=== PATIENT | female | born 2005 | race Two or more races ===

== ENCOUNTER 2024-04-14 17:08 | Emergency (ER) | payer MEDICAID, OTHER ==
[~2024-04-14] VITALS: Ht 160 cm; Wt 58.8 kg
[2024-04-14 18:51] VITALS: BP 108/69; PULSE 98; RESP 16; TEMP 98.3; O2SAT 100
[2024-04-14] MEDS ORDERED: CLOT1CRE51 VA (18:56)
--- NOTE | 2024-04-14 18:56 | ED.PDOC ---
History of Present Illness(SKN HPI Comments This is a 19-year-old female presents to the ED chief complaint rash. Patient states circular rash itchy and red to left forearm times 1-2 weeks. States she is currently . Has not tried any [id number] creams. Denies any other rashes, fever, chills, nausea, vomiting, vaginal bleeding, vaginal spotting, or urinary complaints or abdominal cramping/pain. Chief Complaint: Rash Time Seen by MD: 18:00 Primary Care Provider: NONE History of Present Illness: Nurses Notes, Medications, Allergies Allergies: Coded Allergies: NO KNOWN ALLERGIES (Unverified , 04/14/24) Mode of Arrival: Ambulatory Past Medical History PAST MEDICAL HISTORY: Denies Surgical History: Denies all surgeries LOGISTICIAN History: No Pertinent LOGISTICIAN History Family History Family History: Reviewed,noncontributory to illness Social History Smoker: Non-Smoker Alcohol: Denies ETOH Use Drugs: Denies Drug Use Constitutional: denies: chills, diaphoresis, fatigue, fever, malaise, sweats, weakness, others EENTM: denies: blurred vision, double vision, ear bleeding, ear discharge, ear drainage, ear pain, ear ringing, eye pain, eye redness, hearing loss, mouth pain, mouth swelling, nasal discharge, nose bleeding, nose congestion, nose pain , photophobia, tearing, throat pain, throat swelling, voice changes, others Respiratory: denies: cough, hemoptysis, orthopnea, SOB at rest, shortness of breath, SOB with excertion, stridor, wheezing, others Cardiovascular: denies: chest pain, dizzy spells, diaphoresis, Dyspnea on exertion, edema, irregular heart beat, left arm pain, lightheadedness, palpitations, PND, syncope, others Gastrointestinal: denies: abdomen distended, abdominal pain, blood streaked bowels, constipated, diarrhea, dysphagia, difficulty swallowing, hematemesis, melena, nausea, poor appetite, poor fluid intake, rectal bleeding, rectal pain, vomiting, others Genitourinary: denies: abnormal vagina bleeding, burning, dyspareunia, dysuria, flank pain, frequency, hematuria, incontinence, pain, , vagina discharge, urgency, others Neurological: denies: dizziness, fainting, headache, left sided numbness, left sided weakness, numbness, paresthesia, pre-existing deficit, right sided numbness, right sided weakness, seizure, speech problems, tingling, tremors, weakness, others Musculoskeletal: denies: back pain, gout, joint pain, joint swelling, muscle pain, muscle stiffness, neck pain, others Integumetry: reports: rash (left forearm); denies: bruises, change in color, change in hair/nails, dryness, laceration, lesions, lumps, wounds, others Allergic/Immunocompromised: denies: Difficulty Healing, Frequent Infections, Hives, Itching, others Hematologic/Lymphatic: denies: anemia, blood clots, easy bleeding, easy bruising, swollen glands, others Endocrine: denies: excessive hunger, excessive sweating, excessive thirst, excessive urination, flushing, intolerance to cold, intolerance to heat, unexplained weight gain, unexplained weight loss, others Psychiatric: denies: anxiety, bipolar disorder, depression, hopeless, panic disorder, schizophrenia, sleepless, suicidal, others Physical Exam General Appearance: No Apparent Distress, Normal HEENT: Pharynx Normal Neck: Full Range of Motion, Non-Tender Respiratory: Lungs Clear, No Respiratory Distress, Normal Breath Sounds Cardiovascular: No Edema, No JVD, No Murmur, No Gallop, Normal Peripheral Pulses, Regular Rate/Rhythm Breast Exam: Deferred Gastrointestinal: No Organomegaly, Non Tender, No Pulsatile Mass, Normal Bowel Sounds, Soft Genitalia: Deferred Pelvic: Deferred Rectal: Deferred Extremities: Normal capillary refill, Normal inspection, Normal range of motion, Non-tender, No pedal edema Musculoskeletal : Apperance: Normal Neurologic: Alert, manufacturing laborer II-XII nml as Tested, No Motor Deficits, Normal Affect, Normal Mood, No Sensory Deficits Cerebellar Function: Normal Reflexes: Normal Skin: Dry, Normal Color, Rash (Approximate half dollar size circular erythemic indurated rash to left lateral proximal forearm drainage, streaking), Warm Lymphatic: No Adenopathy Was a procedure done? Was a procedure done?: No Differential Diagnosis (INTG) Differential Diagnosis: Cellulitis, Contact Dermatitis, Impetigo, Psoriasis, Scabies, Urticaria, Varicella X-Ray, Labs, Meds, VS Vital Signs Date Time Temp Pulse Resp B/P (MAP) Pulse Ox O2 Delivery O2 Flow Rate FiO2 04/14/24 17:50 98.2 99 16 108/69 (82) 100 Lab Test 04/14/24 17:49 Range/Units POC Glucose 76 70-106 mg/dl X-Ray, Labs, Meds, VS Comment Likely fungal trial clotrimazole script to pharmacy on file. Follow up with her PCP in 1-2 days. Advised to avoid scratching due to being highly contagious and spread. Take medications as prescribed side effects discussed. ED return precautions given patient indicates understanding and agrees with discharge plan of care. Time of 1ST Reevaluation: 18:49 Reevaluation 1ST: Improved Patient Education/Counseling: Diagnosis, Treatment, Prognosis, Need For Follow Up Family Education/Counseling: No Family Present Departure 1 Departure Time of Disposition: 18:52 Impression: Primary Impression: Ringworm of body Disposition: 01 HOME / SELF CARE / HOMELESS Condition: Stable e-Prescriptions Clotrimazole (Clotrimazole) 1 % Cre 1 APPLIC VA BID for 14 Days, #30 GRAMS Apply thin layer to the affected area twice daily times 14 days Prov: JOHANNA ISRAEL 04/14/24 Discharged With: Self Critical Care Note Critical Care Time?: No Stability Stability form required: JOHANNA Delvalle Apr 14, 2024 18:56
== END 2024-04-14 19:08 | disposition home or self-care (01) ==
LOC: ER 17:08
DX: O26.899 Other specified pregnancy related conditions, unspecified trimester (principal); B35.4 Tinea corporis
CPT/HCPCS: 82947; 82962